=== PATIENT | male | born 1985 | race Caucasian/White ===

== ENCOUNTER 2018-08-11 14:00 | Emergency (ER) | payer OTHER ==
[~2018-08-11] VITALS: Wt 100.0 kg
[2018-08-11 14:07] VITALS: BP 129/77; PULSE 110; RESP 24
--- NOTE | 2018-08-11 16:20 | ERD ---
ER Documentation Chief Complaint Chief Complaint FLU LIKE SYMPTOMS X 2 DAYS, LEF KNEE TODAY, FEVER SINCE YESTERDAY HPI 33-year-old male who presents for relation of flulike symptoms with fever for the last 2 days, associated with cough. Also endorses left lateral knee pain that is painful with ambulation, he denies history of trauma, he works as a delivery manager. He denies history of IV drug use, he has not noticed any redness swelling or drainage from his knee. He is otherwise healthy with no medical problems. ROS All systems reviewed and are negative except as per history of present illness. Medications Home Meds Active Scripts Oseltamivir Phosphate* (Tamiflu*) 75 Mg Capsule, 75 MG PO BID for 5 Days, CAP Prov:VANESSA CUMMINGS MD 08/11/18 Reported Medications [None] No Conflict Check 06/30/09 Allergies Allergies: Coded Allergies: Penicillins (Verified Allergy, Mild, 06/30/09) acetaminophen (Verified Allergy, Mild, 03/20/13) hydrocodone bit (Verified Allergy, Mild, 03/20/13) PMhx/Soc History of Surgery: No Hx Neurological Disorder: Yes (SEIZURE) Hx Respiratory Disorders: No Hx Cardiac Disorders: No Hx Miscellaneous Medical Probl: No Hx Alcohol Use: No Hx Substance Use: No Hx Tobacco Use: No FmHx Family History: No diabetes Physical Exam Vitals Vital Signs Date Temp Pulse Resp B/P (MAP) Pulse Ox O2 O2 Flow FiO2 Time Delivery Rate 08/11/18 Nasal 16:37 Cannula 08/11/18 102.9 110 24 129/77 99 14:07 (94) Physical Exam Const: Patient is febrile, alert awake, appears stated age Head: Atraumatic Eyes: Normal Conjunctiva ENT: Normal External Ears, Nose and Mouth. Neck: Full range of motion. No meningismus. Resp: Clear to auscultation bilaterally Cardio: Regular rate and rhythm, no murmurs Abd: Soft, non tender, non distended. Normal bowel sounds Skin: No petechiae or rashes Back: No midline or flank tenderness Ext: No cyanosis, or edema. There is some tenderness along the left lateral patella, there is no palpable effusion, range of motion is intact although painful with flexion, distally sensation intact light touch Neur: Awake and alert Psych: Normal Mood and Affect Result Diagram: 08/11/18 1635 08/11/18 1635 Results 24 hrs Laboratory Tests Test 08/11/18 16:35 08/11/18 16:40 08/11/18 16:45 08/11/18 18:37 White Blood 6.9 10^3/ul Count Red Blood Count 4.99 10^6/ul Hemoglobin 14.6 g/dl Hematocrit 46.1 % Mean 92.4 fl Corpuscular Volume Mean 29.3 pg Corpuscular Hemoglobin Mean 31.7 g/dl Corpuscular Hemoglobin Conc ent Red Cell 13.1 % Distribution Width Platelet Count 194 10^3/UL Mean Platelet 10.0 fl Volume Immature 0.400 % Granulocytes % Neutrophils % 74.7 % Lymphocytes % 11.4 % Monocytes % 13.0 % Eosinophils % 0.1 % Basophils % 0.4 % Nucleated Red 0.0 /100WBC Blood Cells % Immature 0.030 10^3/ul Granulocytes # Neutrophils # 5.1 10^3/ul Lymphocytes # 0.8 10^3/ul Monocytes # 0.9 10^3/ul Eosinophils # 0.0 10^3/ul Basophils # 0.0 10^3/ul Nucleated Red 0.0 10^3/ul Blood Cells # Erythrocyte 19 mm/Hr Sedimentation Rate Prothrombin 13.9 Sec Time Prothrombin 1.1 Time Ratio INR 1.06 International Normalized Rati o Activated 30.3 Sec Partial Thrombo plast Time Sodium Level 142 mmol/L Potassium Level 4.0 mmol/L Chloride Level 103 mmol/L Carbon Dioxide 29 mmol/L Level Anion Gap 10 Blood Urea 13 mg/dl Nitrogen Creatinine 1.01 mg/dl Est Glomerular > 60 mL/min Filtrat Rate mL/min Glucose Level 83 mg/dl Calcium Level 8.9 mg/dl Total Bilirubin 0.2 mg/dl Direct 0.00 mg/dl Bilirubin Indirect 0.2 mg/dl Bilirubin Aspartate Amino 45 IU/L Transf (AST/SGO T) Alanine 44 IU/L Aminotransferas e (ALT/SGPT) Alkaline 93 IU/L Phosphatase Troponin I < 0.012 ng/ml C-Reactive 3.7 mg/dl Protein Total Protein 8.1 g/dl Albumin 4.2 g/dl Globulin 3.90 g/dl Albumin/Globuli 1.07 n Ratio POC Venous 0.9 mmol/L Lactate Urine Color YELLOW Urine Clarity CLEAR Urine pH 5.0 Urine Specific 1.029 [place] Urine Ketones NEGATIVE mg/dL Urine Nitrite NEGATIVE mg/dL Urine Bilirubin NEGATIVE mg/dL Urine 2+ mg/dL Urobilinogen Urine Leukocyte NEGATIVE Araceli/ul Esterase Urine NEGATIVE mg/dL Hemoglobin Urine Glucose NEGATIVE mg/dL Urine Total NEGATIVE mg/dl Protein Synovial Fluid OTHER Source Synovial Fluid LIGHT YELLOW Color Synovial Fluid HAZY Appearance Synovial Fluid 5.0 mL Volume Synovial Fluid 85 /cmm WBC Synovial Fluid 17.0 % Polynuclear WBC s % Synovial Fluid 83.0 & Mononuclear WBC s % Synovial Fluid NO Crystals CRYSTALS SEEN Current Medications Medications Dose Sig/Deshawn Start Time Status Last (Trade) Ordered Route PRN Stop Time Admin Dose Reason Admin Sodium 3,000 ml BOLUS OVER 2 08/11/18 DC 08/11/18 Chloride HOURS STAT 16:26 16:52 (NS) IV* 08/11/18 16:31 Ketorolac 15 mg ONCE STAT 08/11/18 DC 08/11/18 Tromethamine IV 16:44 16:53 (Toradol) 08/11/18 16:51 Lidocaine 20 ml ONCE ONCE 08/11/18 DC (Xylocaine IM 18:00 1% (Mdv) 20 08/11/18 18:01 ml) 1,000 mg ONCE STAT 08/11/18 DC 08/11/18 Acetaminophen PO 19:31 19:38 (Tylenol 08/11/18 19:32 Tab) Procedures/MDM 33-year-old male presents with flulike symptoms, labs were overall unremarkable, his synovial fluid appears negative, at this point I do not suspect a bacterial source of infection, had been planning discharge with Tamiflu, however the patient left prior to receiving discharge paperwork, at discharge she was ambulatory, and hemodynamically stable. Arthrocentesis by me: Patient consented, sterilely draped, full prep, time out performed. Anesthesia: 1% lidocaine locally Location: Left knee Technique: 18 gauge needle aspiration Results: 5 Cc ml of serous fluid Complications: Minimal bleeding. No complications. Departure Diagnosis: Primary Impression: Knee pain Chronicity: acute Laterality: left Qualified Codes: M25.562 - Pain in left knee Additional Impression: Influenza-like illness Condition: Stable VANESSA CUMMINGS MD Aug 11, 2018 16:20
[2018-08-11] MEDS ORDERED: SODIUM CHLORIDE 0.9% 1L BAG IV* STA (16:26)
[2018-08-11] MEDS ORDERED: KETOROLAC 15 MG INJ IV STA (16:44)
[2018-08-11] MEDS ORDERED: LIDOCAINE 1% (MDV) 20 ML INJ IM ONE (18:00)
[2018-08-11] MEDS ORDERED: ACETAMINOPHEN 500 MG TAB PO STA (19:31)
[2018-08-11] MEDS ORDERED: OSEL75CA23 PO (20:41)
== END 2018-08-11 20:18 | disposition home or self-care (01) ==
LOC: FTE 14:00
DX: M25.562 Pain in left knee (principal); J11.1 Influenza due to unidentified influenza virus with other respiratory manifestations; R07.9 Chest pain, unspecified
CPT/HCPCS: 20610; 36415; 71045; 73562; 80053; 81003; 83605; 84484; 85025; 85610; 85651; 85730; 86140; 87040; 87086; 87400; 89060; 93005; 96374; J1885; J7030; Z7502; Z7610